=== PATIENT | male | born 1960 | race Caucasian/White ===

== ENCOUNTER 2018-07-10 08:15 | Emergency (ER) | payer SELFPAY ==
[2018-07-10 08:43] VITALS: BP 150/88; PULSE 89; TEMP 98.3; BMI 29.2
[2018-07-10] MEDS ORDERED: KETOROLAC TROMETHAMINE 60 MG/2 ML VIAL IM ONE (09:20)
[2018-07-10] MEDS ORDERED: CYCLOBENZAPRINE HCL 10 MG TABLET (FP) PO ONE (09:20)
--- NOTE | 2018-07-10 09:26 | PDOC ---
History of Present Illness - General Chief Complaint: Back Pain Stated Complaint: Back Pain, numbness right leg/toe Time Seen by Provider: 07/10/18 09:18 History Source: Patient Exam Limitations: No Limitations - History of Present Illness Initial Comments: 07/10/18 09:24 58-year-old male with history of lumbar herniation of L3 since 2010 presents to the emergency room with complaints of low back pain rating down his right leg causing tingling in his right calf and right first toe. Patient denies weakness of the lower extremity, numbness, swelling, skin discoloration, saddle anesthesia, or incontinence. Occurred: reports: yesterday Severity: reports: mild Pain Location: reports: back Method of Injury: Yes: unknown Loss of Consciousness: no loss of consciousness Associated Symptoms (Fall): trouble walking Past History - Travel Traveled outside of the country in the last 30 days: No Close contact w/someone who was outside of country & ill: No - Past Medical History Allergies/Adverse Reactions: Allergies Allergy/AdvReac Type Severity Reaction Status Date / Time No Known Drug Allergies Allergy Verified 07/10/18 08:42 Home Medications: Ambulatory Orders Lisinopril/Hydrochlorothiazide [Lisinopril-Hctz 10-12.5 mg Tab] 1 each PO DAILY 01/12/14 Cyclobenzaprine HCl [Flexeril -] 5 mg PO TID PRN #12 tablet 07/10/18 Ibuprofen [Motrin -] 600 mg PO TID PRN #21 tablet 07/10/18 HTN: Yes Hypercholesterolemia: Yes Thyroid Disease: No - Suicide/Smoking/Psychosocial Hx Smoking History: Never smoked Have you smoked in the past 12 months: No Information on smoking cessation initiated: No Hx Alcohol Use: No Drug/Substance Use Hx: No Substance Use Type: Alcohol Hx Substance Use Treatment: No Patient Lives Alone: No Lives with/in: spouse/SO Review of Systems - Review of Systems Able to Perform ROS?: Yes Constitutional: No: Symptoms Reported HEENTM: No: Symptoms Reported Respiratory: No: Symptoms reported ABD/GI: No: Symptoms Reported : No: Symptoms Reported Musculoskeletal: Yes: Back Pain, Muscle Pain (rt buttock) Integumentary: No: Symptoms Reported Neurological: Yes: Tingling (right first toe) Hematologic/Lymphatic: No: Symptoms Reported *Physical Exam - Vital Signs Last Vital Signs Temp Pulse Resp BP Pulse Ox 98.3 F 89 18 150/88 98 07/10/18 08:40 07/10/18 08:40 07/10/18 08:40 07/10/18 08:40 07/10/18 08:40 - Physical Exam General Appearance: Yes: Nourished, Appropriately Dressed. No: Apparent Distress Neck: positive: Supple. negative: Tender, Decreased range of motion Respiratory/Chest: positive: Lungs Clear, Normal Breath Sounds. negative: Respiratory Distress, Accessory Muscle Use Cardiovascular: positive: Regular Rhythm, Regular Rate. negative: Murmur Gastrointestinal/Abdominal: positive: Soft. negative: Tenderness Musculoskeletal: positive: Other (right paraspinous tenderness from L3-5 with right sciatic tenderness). negative: CVA Tenderness, Vertebral Tenderness (no midline tenderness) Extremity: positive: Normal Capillary Refill, Normal Inspection, Normal Range of Motion. negative: Tender, Pedal Edema, Swelling, Calf Tenderness Integumentary: positive: Normal Color, Warm, Moist Neurologic: positive: Motor Strength 5/5 (ambulatory). negative: Numbness, Sensory Deficit Deep Tendon Reflexes: Ankle (R): 2+, Knee (R): 2+ Moderate Sedation - Procedure Monitoring Vital Signs: Procedure Monitoring Vital Signs Temperature 98.3 F 07/10/18 08:40 Pulse Rate 89 07/10/18 08:40 Respiratory Rate 18 07/10/18 08:40 Blood Pressure 150/88 07/10/18 08:40 O2 Sat by Pulse Oximetry (%) 98 07/10/18 08:40 ED Treatment Course - RADIOLOGY Radiology Studies Ordered: Category Date Time Status SPINE-LUMBAR ONLY [RAD] Stat Radiology 07/10/18 09:19 Ordered Medical Decision Making - Medical Decision Making 07/10/18 09:27 Complaint: Low back pain since yesterday, history of L3 herniation and received a cortisone injection in 2010 which has controlled his discomfort. Exam: No midline vertebral tenderness. Patient did have tenderness to the right paraspinous muscles from L3-L5. Patient also with right sciatic tenderness Plan: Lumbar x-ray Toradol and Flexeril ordered 07/10/18 10:49 X-ray shows chronic degenerative discogenic disease at L4-5 L5-S1 with no evidence of compression deformities. No acute bony abnormality seen. Patient states feeling better.Patient walked to the bathroom twice and states pain has resolved Will discharge patient home with the same and recommend follow-up with his provider *DC/Admit/Observation/Transfer Diagnosis at time of Disposition: Back pain of lumbar region with sciatica - Discharge Dispostion Disposition: HOME Condition at time of disposition: Improved - Prescriptions Prescriptions: Cyclobenzaprine HCl [Flexeril -] 5 mg PO TID PRN #12 tablet PRN Reason: Back Pain Ibuprofen [Motrin -] 600 mg PO TID PRN #21 tablet PRN Reason: Pain - Referrals Referrals: Oneyda Balbuena MD [Primary Care Provider] - - Patient Instructions Printed Discharge Instructions: DI for Back Pain With Sciatica Additional Instructions: At this time I recommend avoiding movement that trigger discomfort. Please take medication as prescribed and needed. Please do not operate any heavy machinery while taking this medication. Please also follow up with your provider - Post Discharge Activity
== END 2018-07-10 10:59 | disposition home or self-care (01) ==
LOC: JER 08:15
PROC: 3E0233Z Introduction of Anti-inflammatory into Muscle, Percutaneous Approach (ICD-10-PCS; principal; 2018-07-10)
DX: M54.41 Lumbago with sciatica, right side (principal)
CPT/HCPCS: 72100-TC-FY; 99282-25